=== PATIENT | male | born 1960 | race Caucasian/White ===

== ENCOUNTER 2023-12-08 21:25 | Observation (INO) | payer OTHER, SELFPAY ==
--- OUTSIDE RECORDS SUMMARY | 2023-12-08 22:35 | XMS REPORT | Continuity of Care Document ---
Author Name Unknown Address [address] [facility] [place] [address] [facility] thconnect Address [address] [facility] [address] [place] [address] Care Team Providers Care Patient Financial Counselor Name Role Phone EARNESTINE HOLLIS Primary Care Physician Unava ilJUNIE Garcia Attending Clinician Unavailable Junie Flores MD Attending Clinician [phone] Doctor Unassigned, [place] Attending Clinician U navailable L_Roberto Carlos Attending Clinician Unavailable Sarah Azevedo Attending Clinician [phone] L_Pena Admitting Clinician Unavailable Payers Payer Name Policy Type Policy Number Effective Date Expirati on Date Source [employer] MED[employer]ARE OUT OF NETWORK [id number] 2023 00:00:00 Problems Condition Name Condition Details Condition Category Status Onset Date Resolution Date Last Treatment Date Treating Clinician Comments Source HFrEF (heart failure with reduced ejection fraction) HFrEF (heart failure with reduced ejection fraction) Disease Active 11-11 00:00: 00 [facility] Cigarette smoker Cigarette smoker Disease Active 11-11 00:00: 00 [facility] Coronary artery disease involving eyak coronary artery of eyak heart without angina pectoris Coronary artery disease involving eyak coronary artery of eyak heart without angina pectoris Disease Active 11-11 00:00: 00 [facility] Hyperlipid emia, unspecifie d hyperlipid emia type Hyperlipid emia, unspecifie d hyperlipid emia type Disease Active 11-11 00:00: 00 [facility] Encounter for abdominal aortic aneurysm (AAA) screening Encounter for abdominal aortic aneurysm (AAA) screening Disease Active 11-11 00:00: 00 [facility] PAF (paroxysma l atrial fibrillati on) PAF (paroxysma l atrial fibrillati on) Disease Active 11-11 00:00: 00 [facility] Atrial flutter, paroxysmal Atrial flutter, paroxysmal Disease Active 11-11 00:00: 00 [facility] Nasal congestion Nasal Congestion Problem Active 04-22 00:00: 00 [facility] Congestion of nasal sinus Congestion of Nasal Sinus Problem Active 04-22 00:00: 00 [facility] Headache Headache Problem Active 04-22 00:00: 00 [facility] COVID-19 Covid-19 Problem Active 04-22 00:00: 00 [facility] Tobacco user Tobacco User Problem Active 10-01 00:00: 00 [facility] Hypertensi ve heart disease with congestive heart failure Hypertensi ve Heart Disease with Congestive Heart Failure Problem Active 10-01 00:00: 00 [facility] Non-rheuma tic mitral regurgitat ion Non-rheuma tic Mitral Regurgitat ion Problem Active 10-01 00:00: 00 [facility] Cardiomyop athy Cardiomyop athy Problem Active 10-01 00:00: 00 [facility] Edema of lower extremity Edema of Lower Extremity Problem Active 10-01 00:00: 00 [facility] CHF (congestiv e heart failure) CHF (congestiv e heart failure) Disease Active 09-27 00:00: 00 [facility] Acute on chronic systolic (congestiv e) heart failure Acute on chronic systolic (congestiv e) heart failure Disease Active 09-26 00:00: 00 [facility] Cardiomega ly Cardiomega ly Problem Active 09-21 00:00: 00 [facility] Allergies, Adverse Reactions, Alerts Allergy Name Allergy Type Status Severity Reaction(s) Onset Date Inactive Date Treating Clinician Comments Source NO KNOWN ALLERGIE S Drug Class Active [facility] Social History Social Habit Start Date Stop Date Quantity Comments Source [facility] of [facility] use Cigarette Smoker [facility] Cigarette pack-years 2023-11-11 00:00:00 2023-11-11 00:00:00 [facility] Tobacco use and exposure 2023-11-11 00:00:00 2023-11-11 00:00:00 Smokeless tobacco non-user [facility] Alcohol intake 2023-11-11 00:00:00 2023-11-11 00:00:00 7.14 /d [facility] Cigarettes smoked current (pack per day) - Reported 2023-11-11 00:00:00 2023-11-11 00:00:00 [facility] History of Social function 2019-03-30 00:00:00 2019-03-30 00:00:00 [facility] Sex Ass[birth year] At 1960 00:00:00 1960 00:00:00 [facility] Smoking Status Start Date Stop Date Source Heavy Tobacco Smoker [facility] Smokes tobacco daily 2023-11-11 00:00:00 [facility] Medications Ordered Medication Name Filled Medication Name Start Date Stop Date Current Medication? Ordering Clinician Indication Dosage Frequency Signature (SIG) Comments Components Source atorvastati n 80 mg tablet 12-19 00:00: 00 Yes [id number] 80mg Take 1 tablet by mouth at bedtime. [facility] atorvastati n 80 mg tablet 12-19 00:00: 00 Yes [id number] 80mg Take 1 tablet by mouth at bedtime. [facility] atorvastati n 80 mg tablet 12-19 00:00: 00 Yes [id number] 80mg Take 1 tablet by mouth at bedtime. [facility] atorvastati n 80 mg tablet 12-19 00:00: 00 Yes [id number] 80mg Take 1 tablet by mouth at bedtime. [facility] spironolact one 25 mg tablet 11-29 00:00: 00 Yes [id number] 12.5mg Take 0.5 tablets by mouth daily. [facility] furosemide 40 mg tablet 11-29 00:00: 00 Yes [id number] 40mg Take 1 tablet by mouth daily. [facility] metoprolol succinate XL 50 mg 24 hr tablet 11-29 00:00: 00 Yes [id number] 50mg Take 1 tablet by mouth daily. [facility] spironolact one 25 mg tablet 11-29 00:00: 00 Yes [id number] 12.5mg Take 0.5 tablets by mouth daily. [facility] furosemide 40 mg tablet 11-29 00:00: 00 Yes [id number] 40mg Take 1 tablet by mouth daily. [facility] metoprolol succinate XL 50 mg 24 hr tablet 11-29 00:00: 00 Yes [id number] 50mg Take 1 tablet by mouth daily. [facility] spironolact one 25 mg tablet 11-29 00:00: 00 Yes [id number] 12.5mg Take 0.5 tablets by mouth daily. [facility] furosemide 40 mg tablet 11-29 00:00: 00 Yes [id number] 40mg Take 1 tablet by mouth daily. [facility] metoprolol succinate XL 50 mg 24 hr tablet 11-29 00:00: 00 Yes [id number] 50mg Take 1 tablet by mouth daily. [facility] spironolact one 25 mg tablet 11-29 00:00: 00 Yes [id number] 12.5mg Take 0.5 tablets by mouth daily. [facility] furosemide 40 mg tablet 11-29 00:00: 00 Yes [id number] 40mg Take 1 tablet by mouth daily. [facility] metoprolol succinate XL 50 mg 24 hr tablet 11-29 00:00: 00 Yes [id number] 50mg Take 1 tablet by mouth daily. [facility] lisinopril 5 mg tablet 116 00:00: 00 Yes 2.5mg Take 0.5 tablets by mouth daily. [facility] apixaban 5 mg tablet 10-05 00:00: 00 Yes [id number] 5mg Take 1 tablet by mouth 2 (two) times daily. [facility] lisinopril 5 mg tablet 10-05 00:00: 00 Yes 2.5mg Take 0.5 tablets by mouth daily. [facility] apixaban 5 mg tablet 10-05 00:00: 00 Yes [id number] 5mg Take 1 tablet by mouth 2 (two) times daily. [facility] lisinopril 5 mg tablet 10-05 00:00: 00 Yes 2.5mg Take 0.5 tablets by mouth daily. [facility] apixaban 5 mg tablet 10-05 00:00: 00 Yes [id number] 5mg Take 1 tablet by mouth 2 (two) times daily. [facility] lisinopril 5 mg tablet 10-05 00:00: 00 Yes 2.5mg Take 0.5 tablets by mouth daily. [facility] apixaban 5 mg tablet 10-05 00:00: 00 Yes [id number] 5mg Take 1 tablet by mouth 2 (two) times daily. [facility] Janie-Seltze r Extra Strength Janie-Seltze r Extra Strength No Janie-Seltz er Extra Strength [facility] atorvastati n 80 mg tablet TAKE 1 TABLET BY MOUTH ONCE DAILY atorvastati n 80 mg tablet TAKE 1 TABLET BY MOUTH ONCE DAILY No atorvastat in 80 mg tablet TAKE 1 TABLET BY MOUTH ONCE DAILY [facility] Eliquis 5 mg tablet Take 1 tablet twice a day by oral route. Eliquis 5 mg tablet Take 1 tablet twice a day by oral route. No 1 BID Eliquis 5 mg tablet Take 1 tablet twice a day by oral route. [facility] furosemide 40 mg tablet TAKE 1 TABLET BY MOUTH ONCE DAILY furosemide 40 mg tablet TAKE 1 TABLET BY MOUTH ONCE DAILY No furosemide 40 mg tablet TAKE 1 TABLET BY MOUTH ONCE DAILY [facility] lisinopril 5 mg tablet TAKE 1/2 (ONE-HALF) TABLET BY MOUTH ONCE DAILY lisinopril 5 mg tablet TAKE 1/2 (ONE-HALF) TABLET BY MOUTH ONCE DAILY No lisinopril 5 mg tablet TAKE 1/2 (ONE-HALF) TABLET BY MOUTH ONCE DAILY [facility] metoprolol succinate ER 50 mg tablet,exte nded release 24 hr TAKE 1 TABLET BY MOUTH ONCE DAILY metoprolol succinate ER 50 mg tablet,exte nded release 24 hr TAKE 1 TABLET BY MOUTH ONCE DAILY No metoprolol succinate ER 50 mg tablet,ext ended release 24 hr TAKE 1 TABLET BY MOUTH ONCE DAILY [facility] Mucinex Mucinex No Mucinex S [facility] spironolact one 25 mg tablet TAKE 1 TABLET BY MOUTH ONCE DAILY WITH FOOD spironolact one 25 mg tablet TAKE 1 TABLET BY MOUTH ONCE DAILY WITH FOOD No spironolac tone 25 mg tablet TAKE 1 TABLET BY MOUTH ONCE DAILY WITH FOOD [facility] Zithromax Z-Yonathan 250 mg tablet TAKE 2 TABLETS (500 MG) BY ORAL ROUTE ONCE DAILY FOR 1 DAY THEN 1 TABLET (250 MG) BY ORAL ROUTE ONCE DAILY FOR 4 DAYS Zithromax Z-Yonathan 250 mg tablet TAKE 2 TABLETS (500 MG) BY ORAL ROUTE ONCE DAILY FOR 1 DAY THEN 1 TABLET (250 MG) BY ORAL ROUTE ONCE DAILY FOR 4 DAYS No Zithromax Z-Yonathan 250 mg tablet TAKE 2 TABLETS (500 MG) BY ORAL ROUTE ONCE DAILY FOR 1 DAY THEN 1 TABLET (250 MG) BY ORAL ROUTE ONCE DAILY FOR 4 DAYS [facility] Vital Signs Vital Name Observation Time Observation Value Comments S eduarda Systolic blood pressure 2023-11-11 21:48:00 137 mm[Hg] [facility] Diastolic blood pressure 2023-11-11 21:48:00 77 mm[Hg] [facility] Heart rate 2023-11-11 21:48:00 84 /min [facility] Body temperature 2023-11-11 21:48:00 36.72 Rasheeda [facility] Body height 2023-11-11 21:48:00 177.8 cm [facility] Body weight 2023-11-11 21:48:00 60.873 kg [facility] BMI 2023-11-11 21:48:00 19.26 kg/m2 [facility] Oxygen saturation in Arterial blood by Pulse oximetry 2023-11-11 21:48:00 98 /min [facility] BP Diastolic 2022-04-22 00:00:00 85 mm[Hg] [facility] Height 2022-04-22 00:00:00 69 [in_i] [facility] BMI (Body Mass Index) 2022-04-22 00:00:00 20.5 kg/m2 [facility] BP Systolic 2022-04-22 00:00:00 148 mm[Hg] [facility] Body Weight 2022-04-22 00:00:00 2220.8 [oz_av] [facility] Procedures Procedure Date / Time Performed Performing Clinicia n Source ASSIGNMENT OF BENEFITS 2023-11-11 21:39:51 Docto r Unassigned, [place] [facility] Eye Surgery Procedure 2014-09-20 00:00:00 [facility] Hand/finger Surgery [facility] Plan of Care Planned Activity Planned Date Details Comments Source Diagnostic Test Pending 2022-04-22 00:00:00 rapid SARS CoV 2 Ag, QL IA, respiratory specimen [code = rapid SARS CoV 2 Ag, QL IA, respiratory specimen] [facility] Instructions [facility] Encounters Start Date/Time End Date/Time Encounter Type Admission Type Attending Clinicians Care Facility Care Department Encounter ID Source 2023-12-24 09:00:00 2023-12-24 09:00:00 Outpatient JUNIE SALVADOR [facility] [id number] [facility] 2023-11-30 09:00:00 2023-11-30 09:00:00 Outpatient JUNIE SALVADOR [facility] [id number] [facility] 2023-11-23 00:00:00 2023-11-23 00:00:[address] [facility] [id number] 4.2.7.2.686 [id number] [facility] 2023-11-11 15:40:00 2023-11-11 16:12:37 Office Visit Junie Flores RUST SANTI HERMAN [facility] [id number] 4.2.7.2.686 [id number] [facility] 2023-11-11 15:40:00 2023-11-11 16:12:37 Outpatient R JOESPH FLORESSIL [facility] [id number] [facility] 2023-11-11 00:00:00 2023-11-11 00:00:00 Orders Only Doctor Unassigned, [place] [facility] [id number] 4.2.7.2.686 [id number] [facility] 2022-04-23 00:00:00 2022-04-23 00:00:00 Outpatient L_Pena [facility] [id number] 2022-04-22 00:00:00 2022-04-22 00:00:00 Outpatient L_Pena [facility] [id number] 2022-04-22 00:00:00 2022-04-22 00:00:00 Outpatient Sarah Azevedo [facility] [id number] 2022-04-22 00:00:00 2022-04-22 00:00:00 Sarah Azevedo APRN, MSN, [facility]-: [address] [place] [address], [address], [place] [address] , Ph. [facility] [id number] [facility] Notes Date/Time Note Provider Source 2023-11-24 08:45:13 TAGgg/nWzQyJqqNgscPW BdLPXPyQwcU k113f3kVdnfXX2jHt+yg0fYQq/263Jm 4o3393-47-90I79:45:13 Thank you I have contacted patient! 85115-1Rgatdyqbq encounter LveoGM5222-61-55L54:45:32Teleph one encounter NoteTXT1.2.840.262981.1.13.104. 2.7.2.166775|[id number] ble for patient sxjd30405-0TminNTTYMNAVNBDDozgm tted C-CDA narrative [id number] JrgzScknfdqvcEgordsypqSQYF47054 73208OAUSLTKEHOQLQGFZOOASCP8966 -03-06T08:45:321.2.840.752807.1 .72.3.15|1.2.840.881719.1.13.10 4.2.7.2.727879_[id number] [facility] 15:51:07 2JkymOxq9v4dqDNKu6FA Uz0X+zDD0v0 h3q9ub1KkM7q1ClaTUS4FVEINMoSTvn wn1006-98-84E65:51:[address] [facility] for scheduling. 13559-6Eflteazrn encounter NihuWI6575-16-06J51:51:19Teleph one encounter NoteTXT1.2.840.394499.1.13.104. 2.7.2.676021|[id number] ble for patient xksj72014-3EusjDMISRLJJDFBStuvy tted C-CDA narrative [id number] Castaneda [address] PsemDclmvngzqFujscqtutYNXD75764 04002KEHCZJVEDKQMCZFIWSUJEA3989 -03-05T15:51:191.2.840.706790.1 .72.3.15|1.2.840.871128.1.13.10 4.2.7.2.727879_[id number] Lijonny Payton [facility] 2023-11-23 15:13:52 90S/1fX/QBwimuiFv7ND oC4lMI+Remh iCPEoXxzQWK0IIzaiCYU6gpnnsScZAM HK3362-11-12T57:13:[place] [address]-9Fnzcuedkg encounter AcrwOT6211-87-93X28:13:59Teleph one encounter NoteTXT1.2.840.643857.1.13.104. 2.7.2.712993|[id number] ble for patient lcdw03206-7FbjmYZMYNENLCZEChqjj ed C-CDA narrative [address] 54823LWRDSIYJUHALQBEDYOCBXW7478 -03-05T15:13:591.2.840.575774.1 .72.3.15|1.2.840.937144.1.13.10 4.2.7.2.727879_[id number] [facility] 2023-11-23 14:33:44 g5mhEgqBxBYyTSp158Dl AQ/mLOWRJ6w gHJ5l0V02AK8FJaz/r14+AIoNaja6OR 256448-46-13D35:33:44 Patient is scheduled with us next week for testing, I called him to let him know we are out of network with his insurance and what his self pay estimates would be. Pt let me know that he will be getting new insurance by December so pt wants me to ask, Is Dr. Flores okay with us getting this rescheduled for after then? Please advise. Thank you. 44236-5Mysodmqid encounter WgoxKW3290-44-88U88:35:43Teleph one encounter NoteTXT1.2.840.396829.1.13.104. 2.7.2.250587|[id number] ble for patient ussn69590-7KwbbXDRUKHIUWKZRqwcg tted C-CDA narrative [address] ZekkOhffoaivvMccdjfihcVOXW97283 59880SCQVOUPWEQRVJDJBLNYHGN1017 -03-05T14:35:431.2.840.928967.1 .72.3.15|1.2.840.708961.1.13.10 4.2.7.2.727879_[id number] [facility]"
[2023-12-08] MEDS ORDERED: ALBUTEROL 2.5 MG/3 ML NEB SOL NEB PRN (22:46)
[2023-12-08] MEDS ORDERED: ACETAMINOPHEN 500 MG TAB PO PRN (22:46)
[2023-12-08] MEDS ORDERED: IPRATROPIUM BROM 0.5MG/2.5ML NEB PRN (22:46)
[2023-12-08] MEDS ORDERED: ONDANSETRON 4 MG/2 ML VIAL IV PRN (22:46)
--- NOTE | 2023-12-08 22:50 | P.HP ---
Certification for Inpatient Patient admitted to: Observation With expected LOS: <2 Midnights Practitioner: I am a practitioner with admitting privileges, knowledge of patient current condition, hospital course, and medical plan of care. Services: Services provided to patient in accordance with Admission requirements found in Title 42 Section 412.3 of the Code of Federal Regulations Patient History Date of Service: 12/09/23 Reason for admission: Fall, suspected pneumothorax. History of Present Illness: 63-year-old male patient who was evaluated in [facility] after he had a fall from a ladder. He reported that he had a fall which was mechanical from a ladder and he noticed the right side of his chest and hilum. He had chest x-ray done in the [facility] that was concerning for pneumothorax so he was transferred to [facility] for care. He denied overt episode of worsening shortness of breath but he does have pain and having deep breaths and also it bruised up right elbow. He denies dizzy spells, headache. Allergies No Known Allergies Allergy (Unverified 12/08/23 23:06) Review of Systems General: Unremarkable Eyes: Unremarkable ENT: Unremarkable Respiratory: Pleuritic Pain Cardiovascular: Unremarkable Gastrointestinal: Unremarkable Genitourinary: Unremarkable Musculoskeletal: Shoulder Pain, Arm Pain, As per HPI Integumentary: Unremarkable Neurological: Unremarkable Lymphatics: Unremarkable Physical Examination - Physical Exam General: Alert, Oriented x3 HEENT: Atraumatic Neck: Supple Respiratory: Normal air movement Cardiovascular: Regular rate/rhythm, Normal S1 S2 Gastrointestinal: Soft and benign Musculoskeletal: Tenderness, Other (swollen elbow.) Neurological: Normal speech, Normal strength at 5/5 x4 extr Assessment and Plan - Plan Fall, mechanical: Fell from a ladder secondary to mechanical issue. Routine monitoring with pain control to be on board. Suspected pneumothorax: [facility] for pneumothorax. Repeat chest x-ray. Pulmonary consultation placed for management. Continue incentive spirometer. As needed pain control with Tylenol, [place], morphine to be continued. Prophylaxis: SCDs for DVT prophylaxis CODE STATUS: Full code Disposition: We will treat patient's pain, manage suspected pneumothorax and he will be discharged once cleared by pulmonary service. - Advance Directives Does patient have a Living Will: No Does patient have a Durable POA for Healthcare: No
[2023-12-08 23:13] VITALS: BMI 19.3
[2023-12-08] MEDS: HYDROCODONE/APAP 5/325 MG TAB PO PRN (23:20)
[2023-12-08] MEDS: ALPRAZOLAM 0.25 MG TABLET PO PRN (23:20)
[2023-12-09] MEDS: MORPHINE 2 MG/ML SYR IV PRN (04:02)
[2023-12-09 06:37] LABS: Albumin 3.4 g/dL (3.4-5.0); Anion Gap 10.3 mEq/L (5.0-15.0); Bilirubin Total 0.8 mg/dL (0.2-1.0); Globulin 3.3 g/dL (2.3-3.5); Potassium 4.3 mEq/L (3.5-5.1); Protein, Total 6.7 g/dL (6.4-8.2)
[2023-12-09 06:50] LABS: Absolute Lymphocytes (CBC) 0.9 K/uL (0.7-4.9); Absolute Monocytes 0.9 K/uL (0.1-1.3); Absolute Neutrophil 6.2 K/uL (1.8-8.0); Basophils % 0.2 % (0-1.3); Hematocrit 36.1 % (39.6-49.0); Hemoglobin 12.5 g/dL (13.6-17.9); Lymphocytes % 10.9 % (15.3-44.8); MCH 33.3 pg (27.0-35.0); MCHC 34.6 g/dL (32.0-36.0); MCV 96.3 fL (80-100); MPV 7.3 fL (7.6-11.3); Monocytes % 11.2 % (3.3-12.3); Neutrophils % 77.7 % (41.7-73.7); Nucleated Red Blood Cells % 0.1 % (0-0); Platelets 267 thou/uL (152-406); RBC Red Blood Cell Count 3.75 M/uL (4.33-5.43); Red Cell Distribution Width 13.4 % (12.1-15.2)
[2023-12-09] MEDS ORDERED: INFLUENZA VACCINE (for 6+ mo) 0.5 ML DOSE IMVAC ONE (08:00)
[2023-12-09] MEDS: ARFORMOTEROL TARTRATE 15 MCG/2 ML VIAL.NEB NEB SCH (08:45)
[2023-12-09] MEDS: MELOXICAM 7.5 MG TAB PO SCH (09:52)
[2023-12-09] MEDS: predniSONE 20 MG TAB PO SCH (09:52)
--- NOTE | 2023-12-09 10:18 | RAD REPORT ---
EXAM DESCRIPTION: RAD - Chest Single View - 12/09/2023 10:06 am CLINICAL HISTORY: pneumonthorax COMPARISON: Chest Pa And Lat (2 Views) dated 12/08/2023 FINDINGS: Lines: None. Lungs: Increased elevation left hemidiaphragm may be due secondary to some developing atelectasis. Mi ld ill-defined opacities at the right lung base which are nonspecific. Pleural: No significant pleural effusions or pneumothorax. Cardiac: Similar size and configuration. Mediastinum: Within normal limits. Bones: No acute fractures. Other: None IMPRESSION: Mild ill-defined right basilar opacities could reflect mild pneumonia or pneumonitis. Pr obable increased atelectasis at the left lung base. No appreciable pneumothorax identified.
--- NOTE | 2023-12-09 10:47 | P.PN ---
Subjective Date of Service: 12/09/23 Chief Complaint: Fall, suspected pneumothorax. Pt is resting comfortably in bed. Pt has right shoulder hematoma due to fall from a ladder. He was admitted for pneumothorax. CXR does not show any pneumothorax. Waiting for Pulm eval and right shoulder x-ray. No other complaint. Review of Systems General: Unremarkable Eyes: Unremarkable ENT: Unremarkable Respiratory: Unremarkable Cardiovascular: Unremarkable Gastrointestinal: Unremarkable Genitourinary: Unremarkable Musculoskeletal: Shoulder Pain Integumentary: Bruising Neurological: Unremarkable Physical Examination - Vital Signs Temperature: 97.9 F Blood Pressure: 147/70 Pulse: 73 Respirations: 18 Pulse Ox (%): 96 - Physical Exam General: Alert, In no apparent distress, Oriented x3 HEENT: Atraumatic, Normocephalic, PERRLA Neck: Supple, 2+ carotid pulse no bruit Respiratory: Clear to auscultation bilaterally, Normal air movement Cardiovascular: No edema, Normal pulses, Regular rate/rhythm, Normal S1 S2 Capillary refill: <2 Seconds Gastrointestinal: Normal bowel sounds, Soft and benign, Non-distended Musculoskeletal: No clubbing, No swelling, No contractures Integumentary: No rashes, No breakdown, Skin lesion, Tenderness/swelling Neurological: Normal speech, Normal tone, Sensation intact Lymphatics: No axilla or inguinal lymphadenopathy - Studies Laboratory Data (last 24 hrs) 12/09/23 12/09/23 05:45 05:45 WBC 8.00 Hgb 12.5 L Hct 36.1 L Plt Count 267 Sodium 128 L Potassium 4.3 BUN 18 Creatinine 0.70 Glucose 118 H Total Bilirubin 0.8 AST 64 H ALT 47 Alkaline Phosphatase 67 Assessment And Plan - Plan Mechanical fall: Pt fell off from the ladder. Will continue prn pain med. Suspected pneumothorax: Chest x-ray done in outlying facility was concerning for pneumothorax. Repeat CXR is negative for pneumothorax. Consulted Pulm. Continue to use incentive spirometry. Acute resp failure with hypoxia: Continue 2L BNC and prn duoneb. Right shoulder hematoma: Pt has limited range of motion on the right shoulder. Will f/u right shoulder x-ray. Continue prn pain. Hyponatremia: Na is 128. Likely due to hypovolemia. Will continue NS and trend sodium. DVT Prophylaxis: SCDs Code: Full code Disposition: Pending hospital course.
[2023-12-09] MEDS: NA CHLORIDE 0.9% 1,000 ML IV SCH (11:21)
--- NOTE | 2023-12-09 12:06 | P.CNS ---
Date of Consult: 12/09/23 Reason for Consult: Pneumothorax Chief Complaint: Fall, suspected pneumothorax. History of Present Illness: Patient is 63 years of age transfer from [facility] apparently fell from a ladder bruised his right shoulder and right elbow and in addition to a small 10% pneumothorax as per the emergency room physician. Currently he's complaining of pain and swelling in his right arm has some chest discomfort from his fractured ribs. There is no prior history of COPD of the patient is a heavy smoker has recurrent chest congestion's in fact he had chest congestion yesterday Allergies No Known Allergies Allergy (Unverified 12/08/23 23:06) Home Medications: Apixaban [Eliquis] 5 mg PO BID 12/09/23 Atorvastatin Calcium [Lipitor] 80 mg PO BEDTIME 12/09/23 Furosemide [Lasix] 40 mg PO DAILY 12/09/23 Metoprolol Succinate [Toprol Xl] 25 mg PO DAILY 12/09/23 lisinopriL [Lisinopril] 2.5 mg PO DAILY 12/09/23 - Past Medical/Surgical History -: CHF -: HTN Past Surgical History: Patient denies surgical history - Social History Alcohol use: Yes Caffeine use: Yes Place of Residence: Home Review of Systems 10-point ROS is otherwise unremarkable Respiratory: Shortness of Breath Cardiovascular: Chest Pain Physical Examination Temp Pulse Resp BP Pulse Ox 97.9 F 73 18 147/70 H 96 12/09/23 10:47 12/09/23 10:47 12/09/23 10:47 12/09/23 10:47 12/09/23 10:47 General: Alert, Oriented x3 Neck: Supple Respiratory: Diminished Cardiovascular: No edema, Regular rate/rhythm, Normal S1 S2 Musculoskeletal: Other (Patient's right shoulder and right elbow is visibly bru ised and swollen) Integumentary: No rashes, No breakdown Laboratory Data (last 24 hrs) 12/09/23 12/09/23 05:45 05:45 WBC 8.00 Hgb 12.5 L Hct 36.1 L Plt Count 267 Sodium 128 L Potassium 4.3 BUN 18 Creatinine 0.70 Glucose 118 H Total Bilirubin 0.8 AST 64 H ALT 47 Alkaline Phosphatase 67 - Problems (1) Pneumothorax, closed, traumatic Current Visit: Yes Status: Acute Plan: Patient is 63 years of age had a dramatic pneumothorax that is now resolved by repeat chest x-ray. I suspect that he is a significant COPD as he has a history of recurrent chest congestion repeat chest x-ray again and not from the evidence of pneumothorax. 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
--- NOTE | 2023-12-09 12:10 | RAD REPORT ---
EXAM DESCRIPTION: RAD - Shoulder Right 2 View - 12/09/2023 11:50 am CLINICAL HISTORY: right shoullder hematoma COMPARISON: No comparisons FINDINGS/IMPRESSION: No acute fracture. No malalignment. Mild right AC joint degenerative changes. S oft tissue fullness overlies the right humeral head. This may be with as result of the known hematoma .
--- NOTE | 2023-12-09 12:39 | RAD REPORT ---
EXAM DESCRIPTION: RAD - Chest Pa And Lat (2 Views) - 12/08/2023 11:59 pm CLINICAL HISTORY: The patient is 63 years old and is Male; eval of Pneumothorax TECHNIQUE: Frontal and lateral views of the chest. COMPARISON: No relevant prior studies available. FINDINGS: Lungs: Unremarkable. No consolidation. Pleural space: Mildly prominent interstitial markings. No pneumothorax. Heart: Unremarkable. Mediastinum: Unremarkable. Normal mediastinal contour. Bones/joints: No acute findings. IMPRESSION: Mildly prominent interstitial markings. No pneumothorax. Electronically signed by: Alphonso Marcos MD 12/09/2023 12:26 AM CDT Due to temporary technical issues with the PACS/Fluency reporting system, reports are being signed by the in house radiologists without review as a courtesy to insure prompt reporting. The interpreting radiologist is fully responsible for the content of the report.
[2023-12-09] MEDS: IPRATROPIUM BROM 0.5MG/2.5ML NEB SCH (13:00)
[2023-12-10 00:50] VITALS: O2SAT 98
[2023-12-10 07:07] LABS: Absolute Lymphocytes (CBC) 0.6 K/uL (0.7-4.9); Absolute Monocytes 0.8 K/uL (0.1-1.3); Absolute Neutrophil 6.5 K/uL (1.8-8.0); Basophils % 0.1 % (0-1.3); Hematocrit 32.8 % (39.6-49.0); Hemoglobin 11.4 g/dL (13.6-17.9); Lymphocytes % 7.5 % (15.3-44.8); MCH 33.5 pg (27.0-35.0); MCHC 34.8 g/dL (32.0-36.0); MCV 96.2 fL (80-100); MPV 7.5 fL (7.6-11.3); Monocytes % 9.5 % (3.3-12.3); Neutrophils % 82.9 % (41.7-73.7); Nucleated Red Blood Cells % 0.1 % (0-0); Platelets 258 thou/uL (152-406); RBC Red Blood Cell Count 3.41 M/uL (4.33-5.43); Red Cell Distribution Width 13.7 % (12.1-15.2)
[2023-12-10 07:08] LABS: Anion Gap 8.3 mEq/L (5.0-15.0); Potassium 4.3 mEq/L (3.5-5.1)
--- NOTE | 2023-12-10 08:03 | RAD REPORT ---
EXAM DESCRIPTION: [facility] Single View12/10/2023 5:30 am CLINICAL HISTORY: Pneumothorax COMPARISON: December 09, 2023 FINDINGS: Right upper rib fracture not well visualized on this exam Faint curvilinear density right apex may be the pleura associated with a small pneumothorax Lungs appear clear of acute infiltrate. Heart is mildly enlarged IMPRESSION: Probable small right apical pneumothorax. It is without significant change from prior ex am
[2023-12-10] MEDS: APIXABAN 5 MG TABLET PO SCH (08:32)
[2023-12-10] MEDS: METOPROLOL XL 25 MG TAB PO SCH (08:32)
[2023-12-10] MEDS: lisinopriL 5 MG TAB PO SCH (08:33)
[2023-12-10] MEDS: FUROSEMIDE 40 MG TABLET PO SCH (08:33)
--- NOTE | 2023-12-10 11:01 | P.DS ---
Admission Date: 12/08/23 Discharge Date: 12/10/23 Disposition: ROUTINE DISCHARGE Discharge Condition: GOOD Reason for Admission: Fall, suspected pneumothorax. Brief History of Present Illness: 63-year-old male patient who was evaluated in [facility] after he had a fall from a ladder. He reported that he had a fall which was mechanical from a ladder and he noticed the right side of his chest and hilum. He had chest x-ray done in the [facility] that was concerning for pneumothorax so he was transferred to [facility] for care. He denied overt episode of worsening shortness of breath but he does have pain and having deep breaths and also it bruised up right elbow. He denies dizzy spells, headache. Hospital Course: Patient is 63 yo with past medical history of CHF and Htn who transferred from [facility] for evaluation of pneumothorax s/p fall from a ladder. Pt fell from a ladder and bruised his right shoulder and right elbow. At the outside hospital CXR showed a small 10% pneumothorax as per the emergency room physician. Pt was transferred to our facility for higher level of care. On admission, repeat CXR was negative for pneumothorax. Pt has hematoma on right shoulder. Pt has some chest discomfort from his fractured ribs. We gave prn pain med and placed a right shoulder sling. X-ray of the right shoulder was negative for fracture. Pulm cleared pt for discharge. We advised pt to follow up with PCP and Orthopedic surgeon. He was in NAD prior to discharge. Vital Signs/Physical Exam: Temp Pulse Resp BP Pulse Ox 98.4 F 87 18 160/79 H 100 12/10/23 08:00 12/10/23 08:33 12/10/23 08:39 12/10/23 08:33 12/10/23 08:39 Laboratory Data at Discharge: WBC 7.90 thou/uL (4.3-10.9) 12/10/23 06:19 Hgb 11.4 g/dL (13.6-17.9) L D 12/10/23 06:19 Hct 32.8 % (39.6-49.0) L 12/10/23 06:19 Plt Count 258 thou/uL (152-406) 12/10/23 06:19 Sodium 133 mEq/L (136-145) L D 12/10/23 06:19 Potassium 4.3 mEq/L (3.5-5.1) 12/10/23 06:19 BUN 11 mg/dL (7-18) 12/10/23 06:19 Creatinine 0.56 mg/dL (0.70-1.30) L 12/10/23 06:19 Glucose 147 mg/dL (74-106) H 12/10/23 06:19 Total Bilirubin 0.8 mg/dL (0.2-1.0) 12/09/23 05:45 AST 64 U/L (15-37) H 12/09/23 05:45 ALT 47 U/L (16-61) 12/09/23 05:45 Alkaline Phosphatase 67 U/L (45-117) 12/09/23 05:45 Home Medications: Apixaban [Eliquis] 5 mg PO BID 12/09/23 Atorvastatin Calcium [Lipitor] 80 mg PO BEDTIME 12/09/23 Furosemide [Lasix*] 40 mg PO DAILY 12/09/23 Metoprolol Succinate [Toprol Xl*] 25 mg PO DAILY 12/09/23 lisinopriL [Lisinopril] 2.5 mg PO DAILY 12/09/23 Physician Discharge Instructions: Continue ad oneal activity. Wear right shoulder sling. Take prn pain med. Follow up with PCP and orthopedic surgeon (Dr. Soto) in clinic within 1 - 2 weeks. Diet: AHA Activity: Ad oneal Followup: Allen Soto MD [ACTIVE - CAN ADMIT] - (call for an apointment to follow up with him in his clinic) Sarah Azevedo FNP [Primary Care Provider] -
[2023-12-10 12:28] VITALS: BP 115/66; TEMP 99.2
[2023-12-10] MEDS ORDERED: ATORVASTATIN 80 MG TAB PO SCH (21:00)
== END 2023-12-10 13:23 | disposition home or self-care (01) ==
LOC: EDSTATUS 21:41 → 4TH 22:32
PROVIDERS: ADMIT Internal Medicine Nephrology; ATTEND Hospitalist
DX: S22.31XA Fracture of one rib, right side, initial encounter for closed fracture (principal); S40.021A Contusion of right upper arm, initial encounter; J96.01 Acute respiratory failure with hypoxia; W11.XXXA Fall on and from ladder, initial encounter; Y93.89 Activity, other specified; Y92.9 Unspecified place or not applicable; E87.1 Hypo-osmolality and hyponatremia; F17.210 Nicotine dependence, cigarettes, uncomplicated; I50.9 Heart failure, unspecified; I10 Essential (primary) hypertension
CPT/HCPCS: 85025 ×2; 80048; 36415 ×2; 80053; 71045 ×2; 71046; 73030; 94010; G0379; J7512 ×3; J7644 ×2; J2270 ×2; J7605 ×2; J7030 ×2; G0378 ×2